=== PATIENT | female | born 1990 | race Caucasian/White ===

== ENCOUNTER 2023-02-13 08:48 | Emergency (ER) | payer BC, SELFPAY ==
[2023-02-13 08:54] VITALS: BP 121/92; PULSE 81; RESP 18; TEMP 36.6; O2SAT 96; BMI 29.2
--- NOTE | 2023-02-13 09:19 | ED_ITS ---
HPI - General Adult General Time Seen by Provider: 09:40 Date Seen: 02/13/23 Chief complaint: Skin/Abscess/Foreign Body Stated complaint: infected wound Time Seen by Provider: 02/13/23 09:19 Source: patient and RN notes reviewed Mode of arrival: ambulatory Limitations: no limitations History of Present Illness HPI narrative: This 32-year-old female is coming in with left arm/antecubital fossa swelling and pain. She had a blood draw about 2 weeks ago. Admits she was picking at the area in her arm, states the arm was much more red and swollen above and beyond what it is now. The site where she had a blood draw is draining. She has had a history of IV drug use, has had infections in her legs but never this arm. She has been sober for about 7 months, denies any use. One of the 1st thing she says to me is that she is in a lot of pain and needs pain medicine. She does repeat this multiple times while IM with her. I have reviewed with her that we are very likely not going to be using any narcotic medicines. She last used Tylenol about 8:00 a.m.. Her mom is with her and does states she did have a fever in the 101 range. Related Data Home Medications Medication Instructions Recorded Confirmed acetaminophen 325 mg tablet 650 mg PO Q6H PRN 02/13/23 02/13/23 clonazepam 0.5 mg tablet 0.25 - 0.5 mg PO DAILY PRN insomnia 02/13/23 02/13/23 duloxetine 60 mg capsule,delayed 60 mg PO DAILY 02/13/23 02/13/23 release methadone .ROUTE 02/13/23 Previous Rx's Medication Instructions Recorded apixaban 5 mg tablet (Eliquis) 5 mg PO BID #60 tabs 02/13/23 sulfamethoxazole 800 1 tab PO BID #14 tabs 02/13/23 mg-trimethoprim 160 mg tablet (Bactrim DS) Allergies Allergy/AdvReac Type Severity Reaction Status Date / Time No Known Drug Allergies Allergy Verified 02/13/23 08:53 Review of Systems Status of ROS: Reports: 6 or more systems reviewed and unremarkable except as noted in History and below PFSH PFSH Social History Smoking Status: Current every day smoker What tobacco products do you use: cigarettes Do you use any of these nicotine containing products: E-Cigarettes and Vaping Products Second hand tobacco smoke exposure: No How often do you have a drink containing alcohol: never How often do you have six or more drinks on one occasion: Never AUDIT-C Alcohol total score: 0 Non-prescribed substance use: former substance user and marijuana (any form) service: No Exam Const: Vital Signs, click to edit/add: Vital Signs - 24 hr 02/13/23 08:54 Temperature 97.9 F Pulse Rate [Pulse Oximeter] 81 Respiratory Rate 18 Blood Pressure [Ri ght Forearm] 121/92 H Pulse Oximetry 96 Oxygen Delivery Me thod Room Air 32-year-old female with somewhat flat af fect but good eye contact and normal speech is in exam room 1 in the bed, appears comfortable. Her left arm shows erythema, some ecchymosis extending into the forearm and upper arm. There is a central area that has mucopurulent drainage coming out of the antecubital fossa, likely the site of her IV blood draw. Sclera clear, conjugate gaze, pupils are equal and round. Neck is supple. Lungs are clear, CV regular rate and rhythm no murmur. Abdomen is soft, no rebound or guarding, no organomegaly. Did swab the wound drainage and just slightly putting the swab on she complains of severe pain. Documenting provider has reviewed patient's vital signs: yes Course Course ED Course: This is a 32-year-old female that obviously has an infected blood draw site, surrounding cellulitis. There is concern for abscess here with a purulent drainage. Will order an ultrasound of the arm. Will get appropriate blood work. She states she is a difficult IV stick, will call Anesthesia in use ultrasound if needed. She is likely going to require IV antibiotics in do not feel she is a good outpatient candidate. Will get blood cultures. Will give her dose of IV Toradol and some oral Vistaril at this time for pain management. Reevaluation(s) Time of Reevaluation #1: 13:40 Reevaluation #1: Patient is requesting to eat, nursing staff will be getting her food. Reviewed that she does have a blood clot in the left arm, anticoagulants will be needed for 3 months. She does have cellulitis in the arm and have reviewed that at this point she is likely going to be treated with outpatient oral antibiotics. Consultations Consultation #1: Reviewed with hospitalist Dr. Cm. We will await the ultrasound report, obtain labs. She is wondering if this could be managed outpatient and she would potentially see the patient back tomorrow. We will touch base when we have our labs and imaging back. We are waiting Anesthesia to come to an IV start as patient is extremely difficult for access. 1:39pm did follow-up with Dr. Cm, IV was just recently obtained by Anesthesia. Patient did refuse 2nd blood culture, her CBC is currently normal. In the up-to-date pathways for cellulitis, she is at this point recommended for outpatient oral treatment. Considering Bactrim DS for her, need to await her kidney and liver functions to come back. Ultrasound is confirming DVT. Likely use of Eliquis again, confirming normal kidney function. Dr. Cm is going to come down to see patient, see her wound and the plan will be for her to see her tomorrow in follow-up. Time: 11:28 Vital Signs Vital signs: Initial Vital Signs Temperature 97.9 F 02/13/23 08:54 Temperature Source Temporal Artery Scan 02/13/23 08:54 Pulse Rate 81 02/13/23 08:54 Pulse Rhythm Regular 02/13/23 08:54 Respiratory Rate 18 02/13/23 08:54 Blood Pressure 121/92 H 02/13/23 08:54 Blood Pressure Mean 101 02/13/23 08:54 Blood Pressure Position Supine 02/13/23 08:54 Pulse Oximetry 96 02/13/23 08:54 Oxygen Delivery Method Room Air 02/13/23 08:54 Vital Signs Temperature 97.9 F 02/13/23 08:54 Pulse Rate 81 02/13/23 08:54 Respiratory Rate 18 02/13/23 08:54 Blood Pressure 121/92 H 02/13/23 08:54 Pulse Oximetry 96 02/13/23 08:54 Oxygen Delivery Method Room Air 02/13/23 08:54 Temperature 97.9 F 02/13/23 08:54 Pulse Rate 81 02/13/23 08:54 Respiratory Rate 18 02/13/23 08:54 Blood Pressure 121/92 H 02/13/23 08:54 Pulse Oximetry 96 02/13/23 08:54 Oxygen Delivery Method Room Air 02/13/23 08:54 Medical Decision Making Lab Data Lab results reviewed: Yes I reviewed the patient's lab results Labs: Lab Results 02/13/23 02/13/23 02/13/23 Range/Units 10:21 10:25 12:46 WBC 9.71 (4.50-11.00) K/uL RBC 5.45 H (4.00-5.20) m/uL Hgb 15.5 (12.0-16.0) gm/dL Hct 48.1 (33.0-51.0) % MCV 88 (80-100) fL MCH 28 (26-34) pg MCHC 32 (32-36) gm/dL RDW Coeff of Francisco 12.6 (11.5-15.5) % Plt Count 328 (140-440) K/uL Neut % (Auto) 51.2 (42.0-72.0) % Lymph % (Auto) 37.3 (20-44) % Ballard % (Auto) 5.4 (0.0-11.0) % Eos % (Auto) 5.4 (0.0-7.0) % Baso % (Auto) 0.5 (0.0-3.0) % Neut # (Auto) 4.98 (1.7-7.0) K/uL Lymph # (Auto) 3.62 H (0.90-2.90) K/uL Ballard # (Auto) 0.50 (0.00-0.90) K/UL Eos # (Auto) 0.52 H (0.00-0.50) K/uL Baso # (Auto) 0.05 (0.00-0.30) K/uL Abs Immat Gran (auto) 0.02 (0.00-0.30) K/uL Imm/Tot Granulo (auto) 0.2 % Sodium 141 (135-149) mmol/L Potassium 4.1 (3.6-5.1) mmol/L Chloride 101 (96-114) mmol/L Carbon Dioxide 28 (20-32) mmol/L Anion Gap 12 (7-15) mEq/L BUN 17 (5-24) mg/dL Creatinine 0.6 (0.5-1.5) mg/dL Estimated Creat Clear 112.38 Estimated GFR 123 ml/min Glucose 81 (60-115) mg/dL Lactate 0.8 (0.5-1.9) mmol/L Calcium 9.4 (8.4-10.6) mg/dL Total Bilirubin 0.7 (0.1-1.5) mg/dL AST 53 H (12-35) U/L ALT 83 H (4-35) U/L Alkaline Phosphatase 90 (40-150) U/L C-Reactive Protein 8.0 H (0.5-1.0) mg/dL Total Protein 8.7 H (6.0-8.3) g/dL Albumin 4.5 (3.3-5.0) g/dL Procalcitonin 32.50 H (<0.50) ng/mL HCG, Quant Cancelled Urine HCG, Qual Negative (Negative) Urine Opiates Screen Negative (Negative) Ur Oxycodone Screen Negative (Negative) Urine Methadone Screen POSITIVE A (Negative) Ur Propoxyphene Screen Negative (Negative) Ur Barbiturates Screen Negative (Negative) U Tricyclic Antidepress Negative (Negative) Ur Phencyclidine Scrn Negative (Negative) Ur Amphetamines Screen Negative (Negative) U Methamphetamines Scrn Negative (Negative) U Benzodiazepines Scrn Negative (Negative) Urine Cocaine Screen Negative (Negative) U Marijuana (THC) Screen POSITIVE A (Negative) Ur Drug Screen Comment See Note Lab Acknowledgement Test Added Imaging Data Venous US: Attestation: I have reviewed the pertinent imaging results. Radiologist's impression: Patient: TAMMY VALADEZ Facility:?[facility] Patient ID:?[id number] Site Patient ID:?[id number]. Site :?[id number] Study:?US Extremity Left UEV LT-02/13/2023 11:25:21 AM Ordering Physician:?Oneal Ayoub Final Report: INDICATION: Left lower extremity pain and swelling. FINDINGS: Left upper extremity venous ultrasound was performed using grayscale and with color Doppler and spectral analysis. The left internal jugular vein is fully compressible spontaneous venous flow with respiratory phasicity. The left innominate vein, subclavian and subclavian vein demonstrate spontaneous flow with respiratory phasicity. The left axillary vein is fully compressible with spontaneous venous flow augmentation. There is thrombus in 1 of the distal brachial veins. The proximal to mid brachial veins are fully compressible with spontaneous venous flow and augmentation. The basilic vein is compressible with spontaneous venous flow and augmentation. The cephalic vein is patent. The radial and ulnar veins are patent. Impression: The venous thrombosis in 1 of the 2 left distal brachial veins going into the antecubital vein. Report was called to Dr. No on 02/13/2023 1130 hours per. Dictated by Gary Moore MD @ 02/13/2023 11:33:54 AM (Electronic Signature) Discharge Plan Discharge Clinical Impression: Cellulitis, Acute deep vein thrombosis of upper extremity Patient Disposition: Home, Self-Care Condition: Stable Instructions: Cellulitis (ED), Deep Vein Thrombosis (ED) Additional Instructions: For the DVT in your left arm, need to take the anticoagulant and take as prescribed. It is important to not miss any doses. The DVT can propagate and potentially break off, going to the lungs causing things like pulmonary embolus. This condition can be life-threatening unfortunately for some people if it does happen. Taking the blood thinner will help prevent this. You also are being placed on antibiotics for the cellulitis in this left arm. It is important you take these and complete them. Cultures are pending. You are to follow-up with the hospitalist Dr. Cm tomorrow as she recommended. Can use some warm compresses on this left arm for the cellulitis. Tylenol 1000 mg 3 times a day if needed for pain management. Activity Level: Activity as Tolerated Prescriptions: New sulfamethoxazole-trimethoprim [Bactrim DS] 800-160 mg tablet 1 tab PO BID Qty: 14 0RF Eliquis 5 mg tablet 5 mg PO BID Qty: 60 0RF Rx Instructions: Need to complete 10mg twice a day for 7 days, first dose was provided in the ED. After the first week, you will take 5mg twice daily. No Action clonazepam 0.5 mg tablet 0.25 - 0.5 mg PO DAILY PRN (Reason: insomnia) duloxetine 60 mg capsule,delayed release(DR/EC) 60 mg PO DAILY acetaminophen 325 mg tablet 650 mg PO Q6H PRN methadone .ROUTE Follow Up/Referrals: Provider,Not a Local [Primary Care Provider] - Stand Alone Forms: [email or web address] Info Instructions
--- NOTE | 2023-02-13 09:53 | CRLHL7_ITS ---
For Patients: As a result of the Century Cures Act, medical imaging exams and procedure reports are released immediately into your electronic medical record. You may view this report before your referring provider. If you have questions, please contact your health care provider. INDICATION: Left lower extremity pain and swelling. FINDINGS: Left upper extremity venous ultrasound was performed using grayscale and with color Doppler and spectral analysis. The left internal jugular vein is fully compressible spontaneous venous flow with respiratory phasicity. The left innominate vein, subclavian and subclavian vein demonstrate spontaneous flow with respiratory phasicity. The left axillary vein is fully compressible with spontaneous venous flow augmentation. There is thrombus in 1 of the distal brachial veins. The proximal to mid brachial veins are fully compressible with spontaneous venous flow and augmentation. The basilic vein is compressible with spontaneous venous flow and augmentation. The cephalic vein is patent. The radial and ulnar veins are patent. Impression: The venous thrombosis in 1 of the 2 left distal brachial veins going into the antecubital vein. Report was called to Dr. No on 02/13/2023 1130 hours per. Dictated by Gary Moore MD @ 02/13/2023 11:33:54 AM (Electronically Signed)
--- OUTSIDE RECORDS SUMMARY | 2023-02-13 09:57 | XMS_ITS | Continuity of Care Document ---
Author Name Unknown Organization [facility] Address [address] [address] [place] [address] Phone Care Team Providers Care Economic Analysis Director Name Role Phone No Information Unavailable Unavailable Advance Directives Directive Yes / No Effective Date File Name No Information Encounters Encounter Description Practice Location Reason(s) For Visit Diagnoses Date Provider Providers Copied on Encounter [facility], [address] [address], [place], [place], [id number], [place] tel:[phone] No Information No Information Family History Family Member Type Diagnosis Age At Onset No Information Payers Payer name Insurance type Covered alliance party ID Authoriza tion(s) No Information Social History Type Description Quantity Date Captured Comments Sex Female Smoking Status No Information Chief Complaint And Reason For Visit No Information Reason For Referral Reason For Referral No Information History Of Present Illness Encounter Date Complaint History Of Prese nt Illness No Information Functional Status Date Functional Assessmen t No Information Instructions Date Instruction Additional Infor mation No Information Assessments Type Assessment Date No Information Patient Care Teams Name Effective Dates (start - stop) Status Members No Information
--- OUTSIDE RECORDS SUMMARY | 2023-02-13 09:57 | XMS_ITS | Continuity of Care Document ---
Author Name Unknown Organization [facility] Address [address] [address] [place] [address] Phone Care Team Providers Care Psychological Examiner Name Role Phone No Information Unavailable Unavailable Advance Directives Directive Yes / No Effective Date File Name No Information Encounters Encounter Description Practice Location Reason(s) For Visit Diagnoses Date Provider Providers Copied on Encounter [facility], [address] [address], [place], [place], [id number], [place] tel:[phone] No Information No Information Family History Family Member Type Diagnosis Age At Onset No Information Payers Payer name Insurance type Covered green party ID Authoriza tion(s) No Information Social [...]
[2023-02-13] MEDS: hydrOXYzine pamoate 25 MG CAPSULE PO (10:04)
[2023-02-13 10:34] LABS: Ur HCG Qualitative* Negative (Negative)
[2023-02-13 10:40] LABS: Amphetamine Screen Urine Negative (Negative); Barbiturate Screen Urine Negative (Negative); Benzodiazepines Screen Urine Negative (Negative); Cannabinoid Screen Urine POSITIVE (Negative); Cocaine Screen Urine Negative (Negative); Methadone Screen Urine POSITIVE (Negative); Methamphetamines Screen Urine Negative (Negative); Opiate Screen Urine Negative (Negative); Oxycodone Screen Urine Negative (Negative); Phencyclidine Screen Urine Negative (Negative); Tricyclic Antidepressant Urine Negative (Negative)
[2023-02-13] MEDS: KETOROLAC 15 MG/ML inj IVP (12:55)
[2023-02-13 12:57] LABS: Lactate* 0.8 mmol/L (0.5-1.9)
[2023-02-13 12:58] LABS: Basophils Absolute Auto 0.05 K/uL (0.00-0.30); Basophils Percent Auto 0.5 % (0.0-3.0); Eosinophils Absolute Auto 0.52 K/uL (0.00-0.50); Eosinophils Percent Auto 5.4 % (0.0-7.0); Hematocrit 48.1 % (33.0-51.0); Hemoglobin* 15.5 gm/dL (12.0-16.0); Immature Granulocytes Abs Auto 0.02 K/uL (0.00-0.30); Immature Granulocytes Pct Auto 0.2 %; Lymphocytes Absolute Auto 3.62 K/uL (0.90-2.90); Lymphocytes Percent Auto 37.3 % (20-44); Mean Corpuscular HGB Conc 32 gm/dL (32-36); Mean Corpuscular Hemoglobin 28 pg (26-34); Mean Corpuscular Volume 88 fL (80-100); Monocytes Percent Auto 5.4 % (0.0-11.0); Neutrophils Absolute Auto 4.98 K/uL (1.7-7.0); Neutrophils Percent Auto 51.2 % (42.0-72.0); Platelet Count* 328 K/uL (140-440); RDW Coefficient of Variation % 12.6 % (11.5-15.5); Red Blood Count 5.45 m/uL (4.00-5.20); White Blood Count* 9.71 K/uL (4.50-11.00)
--- NOTE | 2023-02-13 13:04 | ED.NURSE ---
Pt refusing 2nd bl cx draw. informed, okay with only 1 set of blood cx.
[2023-02-13 13:15] LABS: Albumin* 4.5 g/dL (3.3-5.0); Chloride* 101 mmol/L (96-114)
[2023-02-13 13:16] LABS: Potassium* 4.1 mmol/L (3.6-5.1); Sodium* 141 mmol/L (135-149)
[2023-02-13 13:18] LABS: Bilirubin Total* 0.7 mg/dL (0.1-1.5); Creatinine* 0.6 mg/dL (0.5-1.5); Est. Creatinine Clearance* 112.38; Estimated Glomerular Filt Rate 123 ml/min
[2023-02-13 13:19] LABS: Alanine Aminotransferase* 83 U/L (4-35); Alkaline Phosphatase* 90 U/L (40-150); Anion Gap 12 mEq/L (7-15); Aspartate Amino Transferase* 53 U/L (12-35); Blood Urea Nitrogen* 17 mg/dL (5-24); Calcium* 9.4 mg/dL (8.4-10.6); Carbon Dioxide* 28 mmol/L (20-32); Glucose* 81 mg/dL (60-115); Total Protein* 8.7 g/dL (6.0-8.3)
[2023-02-13 13:29] LABS: Slide Review Reflex No
--- NOTE | 2023-02-13 13:39 | ED.NURSE ---
Meal tray ordered. Okay to eat per .
--- NOTE | 2023-02-13 13:55 | ED.NURSE ---
Hospitalist at bedside.
[2023-02-13] MEDS: APIXABAN 5 MG TABLET 10 MG PO (14:40)
[2023-02-13 15:01] VITALS: BP 137/94; PULSE 74; RESP 18; TEMP 36.6
[2023-02-13 15:03] VITALS: BP 137/94; PULSE 74; RESP 18; TEMP 36.6; O2SAT 96
== END 2023-02-13 15:02 | disposition home or self-care (01) ==
PROVIDERS: Emergency Provider Family Medicine
DX: I82.622 Acute embolism and thrombosis of deep veins of left upper extremity (principal); L03.114 Cellulitis of left upper limb
CPT/HCPCS: 36415; 80053; 80306; 81025; 83605; 84145; 84702; 85025; 86140; 87040; 87070; 87186; 93971; 96374; 99284; A9270; J1885

== ENCOUNTER 2023-02-14 10:22 | Outpatient (CLI) | payer BC, SELFPAY ==
--- OUTSIDE RECORDS SUMMARY | 2023-02-14 10:25 | XMS_ITS | Continuity of Care Document ---
Author Name Unknown Organization [facility] Address [address] [address] [place] [address] Phone Care Team Providers Care Chemist Instrumentation Name Role Phone No Information Unavailable Unavailable Advance Directives Directive Yes / No Effective Date File Name No Information Encounters Encounter Description Practice Location Reason(s) For Visit Diagnoses Date Provider Providers Copied on Encounter [facility], [address] [address], [place], [place], [id number], [place] tel:[phone] No Information No Information Family History Family Member Type Diagnosis Age At Onset No Information Payers Payer name Insurance type Covered libertarian ID Authoriza tion(s) No Information Social History [...]
[2023-02-14 10:35] VITALS: BP 110/74; PULSE 85; RESP 18; TEMP 36.8; O2SAT 94
== END 2023-02-14 11:59 | disposition home or self-care (01) ==
LOC: OP CLINIC 10:23 → MEDSURG 10:24
PROVIDERS: Visit Provider Family Medicine
DX: L03.90 Cellulitis, unspecified (principal)